=== PATIENT | female | born 1970 | race American Indian/Alaskan Native ===

== ENCOUNTER 2018-11-29 11:18 | Emergency (ER) | payer MEDICAID, OTHER ==
--- NOTE | 2018-11-29 11:45 | Emergency Department Report ---
Chief Complaint: Extremity Injury, Lower Stated Complaint: FEET SWOLLEN Time Seen by Provider: 11/29/18 11:40 - HPI History of Present Illness: vss mse completed - Exam Vital Signs: Vital Signs 11/29/18 11:37 Temperature 98.4 F Pulse Rate 71 Respiratory 16 Rate Blood Pressure 145/82 O2 Sat by Pulse 100 Oximetry MSE screening note: Focused history and physical exam performed. Due to findings the following was ordered: ED Medical Decision Making - Lab Data Result diagrams: 11/29/18 11:56 11/29/18 11:56 ED Disposition for MSE Condition: Stable
[2018-11-29 12:09] LABS: Basophils % (Auto) 0.6 % (0.0-1.8); Eosinophils # (Auto) 0.3 K/mm3 (0.0-0.4); Eosinophils % (Auto) 6.7 % (0.0-4.3); Hematocrit 35.9 % (30.3-42.9); Hemoglobin 11.4 gm/dl (10.1-14.3); Lymphocytes # (Auto) 1.6 K/mm3 (1.2-5.4); Lymphocytes % (Auto) 32.1 % (13.4-35.0); Mean Corpuscular HGB Conc 32 % (30-34); Mean Corpuscular Volume 71 fl (79-97); Monocytes # (Auto) 0.5 K/mm3 (0.0-0.8); Monocytes % (Auto) 10.6 % (0.0-7.3); Platelet Count 187 K/mm3 (140-440); Red Blood Count 5.05 M/mm3 (3.65-5.03); Red Cell Distribution Width 17.7 % (13.2-15.2)
[2018-11-29 12:29] LABS: Alanine Aminotransferase 48 units/L (7-56); Albumin 3.7 g/dL (3.9-5); BUN/Creatinine Ratio 27; Blood Urea Nitrogen 16 mg/dL (7-17); Calcium 9.2 mg/dL (8.4-10.2); Hemolysis Index 10
--- NOTE | 2018-11-29 13:13 | XRay Report ---
ROUTINE CHEST, TWO VIEWS: HISTORY: chest pain. The trachea, heart, mediastinal contour, lung talbert and bony thorax are unremarkable. IMPRESSION: Unremarkable chest x-ray.
--- NOTE | 2018-11-29 15:15 | Vascular Lab Report ---
PROCEDURE: VL VENOUS DUPLEX LE BILAT TECHNIQUE: Duplex Doppler sonography of the BILATERAL legs. Laughlin scale imaging with and without comp ression, spectral waveform analysis with and without augmentation, and color flow Doppler were employ ed. 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 LEFT LOWER EXTREMITY: Deep Venous Thrombus: None Superficial Venous Thrombus: None Venous valvular incompetence: None Soft tissue abnormality: None IMPRESSION: No evidence of deep venous thrombosis. 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 This document is electronically signed by Sultana Bhatti MD., November 29 2018 03:12:36 PM ET
--- NOTE | 2018-11-29 15:55 | Emergency Department Report ---
HPI - General Chief Complaint: Extremity Injury, Lower Time Seen by Provider: 11/29/18 11:40 - HPI HPI: 48-year-old female presents to the emergency department with complaint of bilateral foot pain that is acute on chronic. The patient is a history of surgery to both feet from years ago secondary to some ligament tears that she had from chronically being on her feet wearing high-heeled shoes. 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 The patient has bilateral foot swelling and foot pain, mostly to the bottom of the feet. Sometimes she says that she will get up in the morning and unable to bear weight until the feet "loosen up." It has been worse over the past few nights while at work and got to be too much. She has a past medical history of arthritis, hypertension, anxiety. ED Past Medical Hx - Past Medical History Previous Medical History?: Yes Hx Hypertension: Yes Hx Arthritis: Yes Hx Psychiatric Treatment: (anxiety) - Surgical History Past Surgical History?: Yes Hx Breast Surgery: Yes (left breast lumpectomy) - Social History Smoking Status: Never Smoker Substance Use Type: None - Medications Home Medications: Home Medications Medication Instructions Recorded Confirmed Last Taken Type HYDROcodone/APAP 5-325 [[place] 1 each PO Q6HR PRN #12 tablet 11/29/18 Unknown Rx 5/325] Ibuprofen 800 mg PO Q8H PRN #20 tablet 11/29/18 Unknown Rx ED Review of Systems ROS: Stated complaint: FEET SWOLLEN Other details as noted in HPI Comment: All other systems reviewed and negative Constitutional: denies: chills, fever Eyes: denies: eye pain, vision change ENT: denies: ear pain, throat pain Respiratory: denies: cough, shortness of breath Cardiovascular: edema. denies: chest pain, palpitations Gastrointestinal: denies: abdominal pain, vomiting Genitourinary: denies: dysuria, discharge Musculoskeletal: joint swelling, arthralgia. denies: back pain Skin: denies: rash, change in color Neurological: denies: headache, numbness Physical Exam - Physical Exam Vital Signs: Vital Signs 11/29/18 11:37 Temperature 98.4 F Pulse Rate 71 Respiratory 16 Rate Blood Pressure 145/82 O2 Sat by Pulse 100 Oximetry Physical Exam: GENERAL: The patient is well-developed well-nourished. HEENT: Normocephalic. Atraumatic. Patient has moist mucous membranes. EYES: Extraocular motions are intact. Pupils are equal and reactive to light bilaterally. NECK: Supple. Trachea is midline. CHEST/LUNGS: Clear to auscultation. There is no respiratory distress noted. HEART/CARDIOVASCULAR: Regular. There is no tachycardia. There is no obvious murmur. ABDOMEN: Abdomen is soft, nontender. Patient has normal bowel sounds. There is no abdominal distention. SKIN: Skin is warm and dry. There is nonpitting swelling of the bilateral feet, mostly to the dorsum. NEURO: The patient is awake, alert, and oriented. The patient is cooperative. The patient has no focal neurologic deficits. The patient has normal speech. MUSCULOSKELETAL: There is some tenderness to palpation to the bilateral plantar feet but no obvious deformity. There is no limitation range of motion. There is no evidence of acute injury. Palpable dorsalis pedis pulses bilaterally. Capillary refill less than 2 seconds to the toes of the bilateral feet. ED Course Vital Signs 11/29/18 11:37 Temperature 98.4 F Pulse Rate 71 Respiratory 16 Rate Blood Pressure 145/82 O2 Sat by Pulse 100 Oximetry ED Medical Decision Making - Lab Data Result diagrams: 11/29/18 11:56 11/29/18 11:56 - EKG Data -: EKG Interpreted by Me EKG shows normal: sinus rhythm, axis, intervals, QRS complexes, ST-T waves Rate: normal - EKG Data When compared to previous EKG there are: previous EKG unavailable Interpretation: normal EKG - Radiology Data Radiology results: report reviewed, image reviewed interpreted by me: Chest x-ray does not show any pneumothorax, pleural effusion, pneumonia or obvious focal consolidation. Bilateral lower extremity venous Doppler negative for DVT. - Medical Decision Making Patient presents to the emergency department with acute on chronic bilateral foot pain and swelling. Venous Doppler ultrasound was done that was negative for DVT. Patient's labs were unremarkable. She is neurovascularly intact with good distal pulses and capillary refill less than 2 seconds. Given the location of her discomfort and the history behind it, a differential includes plantar fasciitis, tendinitis. There is no warmth, erythema with concern for gout or cellulitis. The patient will be placed on anti-inflammatories and pain medication and will need to see podiatry and was given some referrals. We also discussed using compression stockings/socks when she returns to work. She will return to the ER with any worsening of her symptoms or any acute distress. I am unaware of the etiology of the patient's cardiac workup but she denies any chest pain, shortness of breath, dizziness. She had an EKG that was normal. A chest x-ray did not show any acute process. She had a negative troponin. - Differential Diagnosis tendinitis, plantar fasciitis, gout, osteoarthritis Critical Care Time: No Critical care attestation.: If time is entered above; I have spent that time in minutes in the direct care of this critically ill patient, excluding procedure time. ED Disposition Clinical Impression: Bilateral foot pain, Bilateral swelling of feet Disposition: TO HOME OR SELFCARE Is pt being admited?: No Condition: Stable Instructions: Plantar Fasciitis (ED), Arthralgia (ED) Additional Instructions: Please follow up with a primary care physician. I am giving you a referral for 2 different local podiatrists. I recommend using compression stockings/socks when you are at work and standing on your feet consistently. Return to the emergency Department with any worsening of your symptoms or any acute distress. You have been prescribed a medication that can be sedating. Therefore, this medication cannot be taken prior to driving, working, being responsible for children, and cannot be mixed with alcohol of any quantity. Prescriptions: Ibuprofen 800 mg PO Q8H PRN #20 tablet PRN Reason: Pain , Severe (7-10) HYDROcodone/APAP 5-325 [[place] 5/325] 1 each PO Q6HR PRN #12 tablet PRN Reason: Pain Referrals: ANITA SNYDER MD [Staff Physician] - 2-3 Days PATTI DAVIS MD [Staff Physician] - 2-3 Days HEMANT SIMMONS DPM [Staff Physician] - 2-3 Days [facility] [Outside] - 2-3 Days Forms: Work/School Release Form(ED) Time of Disposition: 15:58
[2018-11-29 16:19] VITALS: BP 128/77
== END 2018-11-29 16:19 | disposition home or self-care (01) ==
LOC: ED 11:18
DX: M79.672 Pain in left foot (principal); M79.671 Pain in right foot; M79.89 Other specified soft tissue disorders; I10 Essential (primary) hypertension; M19.90 Unspecified osteoarthritis, unspecified site; Z88.2 Allergy status to sulfonamides
CPT/HCPCS: 36415; 71046; 80053; 83880; 84484; 85025; 85379; 93005; 93010; 93970; 99284

== ENCOUNTER 2022-02-20 20:56 | Emergency (ER) | payer BC ==
--- NOTE | 2022-02-20 23:27 | XRay Report ---
CHEST 2 VIEWS INDICATION / CLINICAL INFORMATION: CHEST PAIN. COMPARISON: None available. FINDINGS: SUPPORT DEVICES: None. HEART / MEDIASTINUM: Heart size and mediastinal contour appear within normal limits. LUNGS / PLEURA: No significant pulmonary or pleural abnormality. No pneumothorax. BONES: No significant osseous abnormality. ADDITIONAL FINDINGS: No significant additional findings. IMPRESSION: 1. No active cardiopulmonary disease. Signer Name: Christopher Galvan II, MD Signed: 02/20/2022 11:23 PM Workstation Name: [id number]
[2022-02-21 00:04] LABS: Basophils % (Auto) 0.5 % (0.0-1.8); Eosinophils # (Auto) 0.4 K/mm3 (0.0-0.4); Eosinophils % (Auto) 5.6 % (0.0-4.3); Hematocrit 35.5 % (30.3-42.9); Hemoglobin 11.4 gm/dl (10.1-14.3); Lymphocytes # (Auto) 2.3 K/mm3 (1.2-5.4); Lymphocytes % (Auto) 34.5 % (13.4-35.0); Mean Corpuscular HGB Conc 32 % (30-34); Mean Corpuscular Volume 70 fl (79-97); Monocytes # (Auto) 0.6 K/mm3 (0.0-0.8); Monocytes % (Auto) 9.5 % (0.0-7.3); Platelet Count 217 K/mm3 (140-440); Red Blood Count 5.05 M/mm3 (3.65-5.03)
[2022-02-21 00:25] LABS: Alanine Aminotransferase 31 units/L (7-56); Blood Urea Nitrogen 14 mg/dL (7-17); Calcium 9.6 mg/dL (8.4-10.2); Hemolysis Index 4
[2022-02-21 00:27] LABS: BUN/Creatinine Ratio 20
[2022-02-21 06:25] VITALS: BP 114/70
[2022-02-21] MEDS ORDERED: KETOROLAC 60 MG/2 ML INJ IM ONE (07:04)
--- NOTE | 2022-02-21 07:12 | Emergency Department Report ---
ED Chest Pain HPI - General Chief Complaint: Chest Pain Stated Complaint: CHES PAIN Time Seen by Provider: 02/21/22 06:11 Source: patient Mode of arrival: Ambulatory Limitations: No Limitations - History of Present Illness Initial Comments: 51-year-old female with obesity and no other diagnosed medical conditions presents to the hospital with intermittent sharp chest pain at the sternal area for several months. Patient came to the ED yesterday because symptoms were more constant. Intermittent shortness of breath when pain is significant. Pain is worse with palpation. She denies calf tenderness, history of PE/DVT, recent travel, or control pill use. Patient does complain of intermittent ankle edema with prolonged standing at work. He denies family history of CAD or tobacco use. She has a previous history of a "tear in her valve" diagnosed by fancy packer approximately 8 years ago. Patient has not followed up since. MD Complaint: chest pain -: Sudden, month(s) Onset: during rest Pain Location: substernal Pain Radiation: none Severity: moderate Quality: sharp Consistency: intermittent Improves With: nothing Worsens With: palpation re: dyspnea. denies: nausea, vomting, diaphoresis Other Symptoms: leg swelling. denies: cough, fever, syncope, rash, acid taste in mouth, palpitations, burping Treatments Prior to Arrival: none - Related Data Home Medications Medication Instructions Recorded Confirmed Last Taken Aspirin [Adult Aspirin] 81 mg PO DAILY 09/20/20 09/20/20 Unknown Naproxen 1 tab PO Q48HR 09/20/20 09/20/20 Unknown Vitamin D3 1 cap PO DAILY 09/20/20 09/20/20 Unknown Previous Rx's Medication Instructions Recorded Last Taken Type Ibuprofen [Motrin] 800 mg PO Q8HR PRN #20 tablet 02/21/22 Unknown Rx Allergies Allergy/AdvReac Type Severity Reaction Status Date / Time Sulfa (Sulfonamide Allergy Anaphylaxis Verified 09/20/20 15:27 Antibiotics) Heart Score - HEART Score History: Slightly suspicious EKG: Normal Age: 45-65 Risk factors: 1-2 risk factors Troponin: < normal limit HEART Score: 2 - EKG Read Time Time EKG Completed: 21:09 EKG Read Time: 21:18 ED Review of Systems ROS: Stated complaint: CHES PAIN Other details as noted in HPI Comment: All other systems reviewed and negative ED Past Medical Hx - Past Medical History Hx Hypertension: No (PT SAID NO AND NO MEDICATIONS) Hx Heart Attack/AMI: No Hx Congestive Heart Failure: No Hx Diabetes: No Hx GERD: No Hx Liver Disease: No Hx Sickle Cell Disease: No Hx Arthritis: Yes (RT KNEE) Hx Headaches / Migraines: Yes (MIGRAINES) Hx Seizures: No Hx Psychiatric Treatment: (anxiety) Hx Asthma: Yes Hx COPD: No Hx Tuberculosis: No Hx HIV: No - Surgical History Hx Coronary Stent: No Hx Pacemaker: No Hx Internal Defibrillator: No Hx Breast Surgery: Yes (left breast lumpectomy-BENIGN) - Social History Smoking Status: Never Smoker - Medications Home Medications: Home Medications Medication Instructions Recorded Confirmed Last Taken Type Aspirin [Adult Aspirin] 81 mg PO DAILY 09/20/20 09/20/20 Unknown History Naproxen 1 tab PO Q48HR 09/20/20 09/20/20 Unknown History Vitamin D3 1 cap PO DAILY 09/20/20 09/20/20 Unknown History Ibuprofen [Motrin] 800 mg PO Q8HR PRN #20 tablet 02/21/22 Unknown Rx ED Physical Exam - General Limitations: No Limitations - Other Other exam information: General: No acute distress Head: Atraumatic Eyes: normal appearance ENT: Moist mucous membranes Neck: Normal appearance, no midline tenderness Chest: Clear to auscultation bilaterally, reproducible anterior/sternal chest wall tenderness to palpation CV: Regular rate and rhythm Abdomen: Soft, normal bowel sounds, nontender, nondistended, no rebound or guarding Back: Normal inspection Extremity: Bilateral ankle edema. No calf tenderness or leg asymmetry Neuro: Alert O x 3, no facial asymmetry, speech clear, no gross motor sensory deficit Psych: Appropriate behavior Skin: No rash ED Course Vital Signs 02/20/22 02/21/22 02/21/22 21:06 04:05 04:16 Temperature 98.7 F Pulse Rate 89 62 Respiratory 18 18 13 Rate Blood Pressure 150/86 114/70 O2 Sat by Pulse 98 100 100 Oximetry 02/21/22 02/21/22 02/21/22 04:30 04:46 05:00 Temperature Pulse Rate 76 63 88 Respiratory 19 12 21 Rate Blood Pressure 114/70 114/70 114/70 O2 Sat by Pulse 98 99 96 Oximetry 02/21/22 02/21/22 02/21/22 05:16 05:30 05:46 Temperature Pulse Rate 59 L 63 67 Respiratory 12 15 14 Rate Blood Pressure 114/70 114/70 114/70 O2 Sat by Pulse 100 99 100 Oximetry 02/21/22 02/21/22 06:00 06:16 Temperature Pulse Rate 60 59 L Respiratory 14 14 Rate Blood Pressure 114/70 114/70 O2 Sat by Pulse 100 100 Oximetry MOHINDER score - Mohinder Score Age > 65: (0) No Aspirin use within the Past 7 Days: (0) No 3 or more CAD Risk Factors: (0) No 2 or more Angina events in past 24 hrs: (0) No Known CAD with more than 50% Stenosis: (0) No Elevated Cardiac Markers: (0) No ST Deviation Greater than 0.5mm: (0) No MOHINDER Score: 0 ED Medical Decision Making - Lab Data Result diagrams: 02/20/22 23:40 02/20/22 23:40 Lab Results 02/20/22 02/20/22 02/21/22 Range/Units 23:40 23:40 05:28 WBC 6.7 (4.5-11.0) K/mm3 RBC 5.05 H (3.65-5.03) M/mm3 Hgb 11.4 (10.1-14.3) gm/dl Hct 35.5 (30.3-42.9) % MCV 70 L (79-97) fl MCH 23 L (28-32) pg MCHC 32 (30-34) % RDW 18.0 H (13.2-15.2) % Plt Count 217 (140-440) K/mm3 Lymph % (Auto) 34.5 (13.4-35.0) % Tripp % (Auto) 9.5 H (0.0-7.3) % Eos % (Auto) 5.6 H (0.0-4.3) % Baso % (Auto) 0.5 (0.0-1.8) % Lymph # (Auto) 2.3 (1.2-5.4) K/mm3 Tripp # (Auto) 0.6 (0.0-0.8) K/mm3 Eos # (Auto) 0.4 (0.0-0.4) K/mm3 Baso # (Auto) 0.0 (0.0-0.1) K/mm3 Seg Neutrophils % 49.9 (40.0-70.0) % Seg Neutrophils # 3.3 (1.8-7.7) K/mm3 Sodium 138 (137-145) mmol/L Potassium 4.1 (3.6-5.0) mmol/L Chloride 102.9 (98-107) mmol/L Carbon Dioxide 25 (22-30) mmol/L Anion Gap 14 mmol/L BUN 14 (7-17) mg/dL Creatinine 0.7 (0.6-1.2) mg/dL Estimated GFR > 60 ml/min BUN/Creatinine Ratio 20 % Glucose 105 H (65-100) mg/dL Calcium 9.6 (8.4-10.2) mg/dL Total Bilirubin 0.20 (0.1-1.2) mg/dL AST 32 (5-40) units/L ALT 31 (7-56) units/L Alkaline Phosphatase 142 H (35-129) units/L Troponin T < 0.010 < 0.010 (0.00-0.029) ng/mL Total Protein 7.9 (6.3-8.2) g/dL Albumin 4.0 (3.9-5) g/dL Albumin/Globulin Ratio 1.0 % - EKG Data -: EKG Interpreted by Ia EKG shows normal: sinus rhythm, ST-T waves (No STEMI) Rate: normal - EKG Data When compared to previous EKG there are: previous EKG unavailable - Radiology Data Radiology results: report reviewed CHEST 2 VIEWS INDICATION / CLINICAL INFORMATION: CHEST PAIN. COMPARISON: None available. FINDINGS: SUPPORT DEVICES: None. HEART / MEDIASTINUM: Heart size and mediastinal contour appear within normal limits. LUNGS / PLEURA: No significant pulmonary or pleural abnormality. No pneumothorax. BONES: No significant osseous abnormality. ADDITIONAL FINDINGS: No significant additional findings. IMPRESSION: 1. No active cardiopulmonary disease. - Medical Decision Making 51-year-old female presents to the hospital atypical chest pain. Heart score 2 with negative troponin x2. Pain is sharp in nature and reproducible on palpation without tachycardia, hypoxia, or symptoms of DVT. Patient offered D- dimer testing for further evaluation for blood clot but declines at this time. Patient prefers to follow-up with PMD and fancy packer as outpatient. Patient educated on signs and symptoms of PE and SC and to return to ER if symptoms worsen. Patient treated with Toradol in the ED and will be discharged with NSAID Critical Care Time: No Critical care attestation.: If time is entered above; I have spent that time in minutes in the direct care of this critically ill patient, excluding procedure time. ED Disposition Clinical Impression: Chest wall pain Disposition: HOME / SELF CARE / HOMELESS Is pt being admited?: No Does the pt Need Aspirin: No Condition: Stable Instructions: Nonspecific Chest Pain, Adult, Chest Wall Pain, [id number] Additional Instructions: Take the medication as prescribed. Follow-up with your primary care doctor and the fancy packer provided for further evaluation of your heart given your history of "tear in your valve." Return if symptoms worsen as indicated by your discharge instructions. Prescriptions: Ibuprofen [Motrin] 800 mg PO Q8HR PRN #20 tablet PRN Reason: Pain , Severe (7-10) Referrals: CONSUELO DUDLEY MD [Staff Physician] - 3-5 Days (Field Liability Generalist) your, primary care doctor [Other] - 3-5 Days Time of Disposition: 07:14
--- NOTE | 2022-02-22 15:13 | Electrocardiograph Report ---
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
== END 2022-02-21 07:30 | disposition home or self-care (01) ==
LOC: ED 20:56
DX: R07.9 Chest pain, unspecified (principal); M19.90 Unspecified osteoarthritis, unspecified site; F41.9 Anxiety disorder, unspecified; J45.909 Unspecified asthma, uncomplicated; Z90.49 Acquired absence of other specified parts of digestive tract; Z88.1 Allergy status to other antibiotic agents; Z79.899 Other long term (current) drug therapy
CPT/HCPCS: 36415; 71046; 80053; 84484; 85025; 93005; 96372; 99283; J1885

== ENCOUNTER 2022-03-28 04:28 | Emergency (ER) | payer BC ==
[2022-03-28 04:44] VITALS: BP 170/76
[2022-03-28 05:10] LABS: Basophils % (Auto) 0.4 % (0.0-1.8); Eosinophils # (Auto) 0.4 K/mm3 (0.0-0.4); Eosinophils % (Auto) 6.5 % (0.0-4.3); Hematocrit 36.5 % (30.3-42.9); Hemoglobin 11.2 gm/dl (10.1-14.3); Lymphocytes # (Auto) 2.2 K/mm3 (1.2-5.4); Lymphocytes % (Auto) 37.1 % (13.4-35.0); Mean Corpuscular HGB Conc 31 % (30-34); Mean Corpuscular Volume 71 fl (79-97); Monocytes # (Auto) 0.5 K/mm3 (0.0-0.8); Platelet Count 214 K/mm3 (140-440); Red Blood Count 5.16 M/mm3 (3.65-5.03); Red Cell Distribution Width 18.3 % (13.2-15.2)
--- NOTE | 2022-03-28 05:33 | XRay Report ---
CHEST 2 VIEWS INDICATION / CLINICAL INFORMATION: CHEST PAIN. COMPARISON: None available. FINDINGS: SUPPORT DEVICES: None. HEART / MEDIASTINUM: Heart size and mediastinal contour appear within normal limits. LUNGS / PLEURA: No significant pulmonary or pleural abnormality. No pneumothorax. BONES: No significant osseous abnormality. ADDITIONAL FINDINGS: No significant additional findings. IMPRESSION: 1. No active cardiopulmonary disease. Signer Name: Christopher Galvan II, MD Signed: 03/28/2022 5:28 AM Workstation Name: [id number]
[2022-03-28 05:34] LABS: Alanine Aminotransferase 30 units/L (7-56); Albumin 3.8 g/dL (3.9-5); Blood Urea Nitrogen 11 mg/dL (7-17); Calcium 9.2 mg/dL (8.4-10.2); Hemolysis Index 3
[2022-03-28 05:49] LABS: BUN/Creatinine Ratio 16
--- NOTE | 2022-03-31 13:44 | Electrocardiograph Report ---
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
== END 2022-03-28 06:17 | disposition left against medical advice (07) ==
LOC: ED 04:28
DX: R07.89 Other chest pain (principal); R53.1 Weakness; Z53.21 Procedure and treatment not carried out due to patient leaving prior to being seen by health care provider
CPT/HCPCS: 36415; 71046; 80053; 84484; 85025; 93005